=== PATIENT | male | born 1975 | race Caucasian/White ===

== ENCOUNTER 2023-10-22 23:29 | Emergency (ER) | payer BC ==
[2023-10-22 23:51] VITALS: BP 121/77; PULSE 98; RESP 18; TEMP 98.3; BMI 28.1
[2023-10-23] MEDS ORDERED: CEPHALEXIN MONOHYDRATE 500 MG CAPSULE (UD) ONE (00:35)
[2023-10-23] MEDS: CEPHALEXIN MONOHYDRATE 500 MG CAPSULE (UD) PO ONE (00:37)
== END 2023-10-23 00:37 | disposition home or self-care (01) ==
LOC: JER 23:29
DX: L03.012 Cellulitis of left finger (principal)
CPT/HCPCS: 99283-25